=== PATIENT | male | born 1945 | race Two or more races ===

== ENCOUNTER 2024-06-13 20:05 | Inpatient (IN) | payer OTHER, MEDICARE ==
[~2024-06-13] VITALS: Ht 170.2 cm; Wt 107.5 kg
[2024-06-13 20:56] LABS: BASOPHILS # (AUTO) 0.1 K/UL (0.0-0.2); EOSINOPHILS # (AUTO) 0.2 K/uL (0.0-0.7); EOSINOPHILS % (AUTO) 3.2 % (0.0-7.0); HEMATOCRIT 43.5 % (36.7-47.1); HEMOGLOBIN 14.2 g/dL (12.5-16.3); LYMPHOCYTES # (AUTO) 1.4 K/uL (0.8-4.8); LYMPHOCYTES % (AUTO) 20.4 % (20.5-51.5); MEAN CORPUSCULAR HEMOGLOBIN 27.1 uug (23.8-33.4); MEAN CORPUSCULAR HGB CONC 33 g/dL (32.5-36.3); MEAN CORPUSCULAR VOLUME 82.8 fL (73.0-96.2); MONOCYTES # (AUTO) 0.5 K/uL (0.1-1.30); MONOCYTES % (AUTO) 7.3 % (0.0-11.0); NEUTROPHILS # (AUTO) 4.7 K/uL (1.8-8.9); NEUTROPHILS % (AUTO) 68.1 % (38.5-71.5); PLATELET COUNT (AUTO) 150 K/uL (152-348); RED BLOOD CELL COUNT(AUTO) 5.26 MIL/uL (4.06-5.63); RED CELL DISTRIBUTION WIDTH 16.2 % (12.1-16.2); WHITE BLOOD COUNT (AUTO) 6.8 K/uL (3.6-10.2)
[2024-06-13] MEDS ORDERED: ONDANSETRON ODT 4 MG TAB.RAPDIS ONE (20:57)
[2024-06-13 20:58] LABS: DIFFERENTIAL COMMENT 1
[2024-06-13] MEDS: ONDANSETRON 4 MG/2 ML VIAL IV ONE (21:05)
[2024-06-13] MEDS: IV NORMAL SALINE 500 ML BAG IV ONE (21:05)
[2024-06-13 21:16] LABS: ALANINE AMINOTRANSFERASE 25 U/L (16-63); ALBUMIN 3.4 g/dL (3.4-5.0); ALKALINE PHOSPHATASE 92 U/L (50-136); ASPARTATE AMINOTRANSFERASE 27 U/L (15-37); BILIRUBIN,DIRECT 0.2 mg/dL (0.0-0.2); BILIRUBIN,TOTAL 0.6 mg/dL (0.2-1.0); CALCIUM 8.9 mg/dL (8.5-10.1); CARBON DIOXIDE 26 mmol/L (21-32); CHLORIDE 102 mmol/L (98-107); CREATININE 1.6 mg/dL (0.6-1.3); GLUCOSE 92 mg/dL (74-106); NT-PRO BNP 739 pg/mL (0-125); POTASSIUM 4.2 mmol/L (3.5-5.1); SODIUM SERUM 137 mmol/L (136-145); TOTAL PROTEIN, SERUM 7.2 g/dL (6.4-8.2); UREA NITROGEN, BLOOD 33 mg/dL (7-18)
[2024-06-13] MEDS ORDERED: HYDROCODONE/APAP 10-325 MG TABLET ONE (21:41)
[2024-06-13] MEDS: HYDROCODONE/APAP 10-325 MG TABLET PO ONE (21:43)
[2024-06-14] VITALS (7 sets, daily range): BP systolic 94–100; BP diastolic 50–55; TEMP 97.2–97.9; O2SAT 92–97
[2024-06-14] MEDS ORDERED: APIX5TAB PO (03:24)
[2024-06-14] MEDS ORDERED: ATOR80TA PO (03:24)
[2024-06-14] MEDS ORDERED: SACU1TAB4 PO (03:24)
[2024-06-14] MEDS ORDERED: LATA2.5D15 EACHEYE (03:24)
[2024-06-14] MEDS ORDERED: SPIR25TA6 PO (03:24)
[2024-06-14] MEDS ORDERED: FLUT1BLS12 (03:24)
[2024-06-14] MEDS ORDERED: DAPA10TA PO (03:24)
[2024-06-14] MEDS ORDERED: AMIO200T5 PO (03:24)
[2024-06-14] MEDS ORDERED: ACETAMINOPHEN 325 MG TABLET PO PRN (04:15)
[2024-06-14] MEDS ORDERED: REMEDY ESSENTIAL ZINC PASTE 113 GM TP PRN (04:15)
[2024-06-14] MEDS ORDERED: MAGNESIUM HYDROXIDE 30 ML LIQUID UDC PO PRN (04:15)
[2024-06-14] MEDS ORDERED: ONDANSETRON 4 MG/2 ML VIAL IV PRN (04:15)
[2024-06-14 06:49] LABS: BASOPHILS # (AUTO) 0.1 K/UL (0.0-0.2); BASOPHILS % (AUTO) 1.7 % (0.0-2.0); EOSINOPHILS # (AUTO) 0.2 K/uL (0.0-0.7); EOSINOPHILS % (AUTO) 3.3 % (0.0-7.0); HEMATOCRIT 41.6 % (36.7-47.1); HEMOGLOBIN 13.7 g/dL (12.5-16.3); LYMPHOCYTES # (AUTO) 1.7 K/uL (0.8-4.8); LYMPHOCYTES % (AUTO) 29.5 % (20.5-51.5); MEAN CORPUSCULAR HEMOGLOBIN 27.2 uug (23.8-33.4); MEAN CORPUSCULAR HGB CONC 33 g/dL (32.5-36.3); MONOCYTES # (AUTO) 0.5 K/uL (0.1-1.30); MONOCYTES % (AUTO) 8.1 % (0.0-11.0); NEUTROPHILS # (AUTO) 3.4 K/uL (1.8-8.9); NEUTROPHILS % (AUTO) 57.4 % (38.5-71.5); PLATELET COUNT (AUTO) 149 K/uL (152-348); RED BLOOD CELL COUNT(AUTO) 5.02 MIL/uL (4.06-5.63); RED CELL DISTRIBUTION WIDTH 15.9 % (12.1-16.2); WHITE BLOOD COUNT (AUTO) 5.9 K/uL (3.6-10.2)
[2024-06-14 07:04] LABS: DIFFERENTIAL COMMENT 1
[2024-06-14 07:14] LABS: CARBON DIOXIDE 23 mmol/L (21-32); CHLORIDE 104 mmol/L (98-107); CREATININE 1.2 mg/dL (0.6-1.3); GLUCOSE 93 mg/dL (74-106); MAGNESIUM 2.1 mg/dL (1.8-2.4); NT-PRO BNP 786 pg/mL (0-125); PHOSPHOROUS 3.7 mg/dL (2.5-4.9); POTASSIUM 4.3 mmol/L (3.5-5.1); SODIUM SERUM 137 mmol/L (136-145); UREA NITROGEN, BLOOD 26 mg/dL (7-18)
[2024-06-14] MEDS: PANTOPRAZOLE SODIUM 40 MG VIAL IV SCH (08:21)
[2024-06-14] MEDS: SPIRONOLACTONE 25 MG TABLET PO SCH (08:22)
[2024-06-14] MEDS: DAPAGLIFLOZIN PROPANEDIOL 10 MG TABLET PO SCH (08:22)
[2024-06-14] MEDS: FLUTICASONE/VILANTEROL 1 EACH BLST.W.DEV INH SCH (08:24)
[2024-06-14] MEDS ORDERED: SACUBITRIL/VALSARTAN 24 MG-26 TABLET PO SCH (09:00)
[2024-06-14] MEDS ORDERED: AMIODARONE HCL 200 MG TABLET PO SCH (09:00)
[2024-06-14] MEDS: AMIODARONE HCL 200 MG TABLET PO SCH (13:09)
[2024-06-14 14:29] LABS: THYROID STIMULATING HORMONE 6.214 mIU/mL (0.358-3.740)
[2024-06-14] MEDS: ATORVASTATIN 40 MG TABLET PO SCH (21:35)
[2024-06-14] MEDS: LATANOPROST OPHT DROP 2.5 ML BOTTLE EACHEYE SCH (21:36)
[2024-06-15 00:04] VITALS: BP 97/61; TEMP 97.5; O2SAT 97
[2024-06-15 04:22] VITALS: BP 103/76; TEMP 97.5; O2SAT 98
[2024-06-15 06:59] LABS: BASOPHILS # (AUTO) 0.1 K/UL (0.0-0.2); BASOPHILS % (AUTO) 1.1 % (0.0-2.0); EOSINOPHILS # (AUTO) 0.3 K/uL (0.0-0.7); EOSINOPHILS % (AUTO) 5.6 % (0.0-7.0); HEMATOCRIT 42.3 % (36.7-47.1); HEMOGLOBIN 13.8 g/dL (12.5-16.3); LYMPHOCYTES # (AUTO) 1.3 K/uL (0.8-4.8); LYMPHOCYTES % (AUTO) 26.4 % (20.5-51.5); MEAN CORPUSCULAR HGB CONC 33 g/dL (32.5-36.3); MEAN CORPUSCULAR VOLUME 82.5 fL (73.0-96.2); MONOCYTES # (AUTO) 0.4 K/uL (0.1-1.30); MONOCYTES % (AUTO) 7.6 % (0.0-11.0); NEUTROPHILS % (AUTO) 59.3 % (38.5-71.5); PLATELET COUNT (AUTO) 141 K/uL (152-348); RED BLOOD CELL COUNT(AUTO) 5.13 MIL/uL (4.06-5.63); RED CELL DISTRIBUTION WIDTH 15.9 % (12.1-16.2); WHITE BLOOD COUNT (AUTO) 5.1 K/uL (3.6-10.2)
[2024-06-15 07:19] LABS: CALCIUM 8.3 mg/dL (8.5-10.1); CARBON DIOXIDE 25 mmol/L (21-32); CHLORIDE 106 mmol/L (98-107); GLUCOSE 87 mg/dL (74-106); MAGNESIUM 2.3 mg/dL (1.8-2.4); PHOSPHOROUS 3.6 mg/dL (2.5-4.9); POTASSIUM 4.4 mmol/L (3.5-5.1); SODIUM SERUM 138 mmol/L (136-145); UREA NITROGEN, BLOOD 20 mg/dL (7-18)
[2024-06-15 07:31] LABS: DIFFERENTIAL COMMENT 1
[2024-06-15 08:33] VITALS: BP 93/52; TEMP 97.5; O2SAT 98
[2024-06-15 12:40] VITALS: BP 110/64; TEMP 97.8; O2SAT 95
[2024-06-16] MEDS ORDERED: PANTOPRAZOLE SODIUM 40 MG TABLET.DR PO SCH (07:00)
== END 2024-06-15 14:48 | disposition home or self-care (01) | DRG 74 ==
LOC: ER 20:05 → TELE3 06-14 02:25 → MEDSURG3 06-15 10:14
PROVIDERS: ADMIT Nurse Practitioner Family; ATTEND Nurse Practitioner Family
PROC: 0S9D3ZX Drainage of Left Knee Joint, Percutaneous Approach, Diagnostic (ICD-10-PCS; principal; 2024-06-14)
DX: G90.89 Other disorders of autonomic nervous system (principal); M25.062 Hemarthrosis, left knee; I48.20 Chronic atrial fibrillation, unspecified; N17.8 Other acute kidney failure; I50.22 Chronic systolic (congestive) heart failure; J98.11 Atelectasis; I48.0 Paroxysmal atrial fibrillation; I25.5 Ischemic cardiomyopathy; T45.515A Adverse effect of anticoagulants, initial encounter; Y92.012 Bathroom of single-family (private) house as the place of occurrence of the external cause; D69.6 Thrombocytopenia, unspecified; I25.10 Atherosclerotic heart disease of native coronary artery without angina pectoris; J45.909 Unspecified asthma, uncomplicated; I11.0 Hypertensive heart disease with heart failure; Z96.653 Presence of artificial knee joint, bilateral; Z95.1 Presence of aortocoronary bypass graft; Z79.01 Long term (current) use of anticoagulants; I49.3 Ventricular premature depolarization
CPT/HCPCS: 36415; 71045; 83735; 83921; 84100; 84443; 84484; 85025; 85651; 86140; 93307; 93880; A4606; A4663; G0378; J2470; J7040; Q0162